=== PATIENT | male | born 1960 | race Caucasian/White ===

== ENCOUNTER 2016-08-03 21:13 | Emergency (ER) | payer BC ==
[~2016-08-03] VITALS: Ht 177.8 cm; Wt 76.5 kg
[2016-08-03 21:14] VITALS: BP 151/95; PULSE 73; RESP 14; TEMP 98; O2SAT 98
[2016-08-04] MEDS ORDERED: PANT40TA3 PO (05:15)
[2016-08-04] MEDS ORDERED: CEFU1TAB20 PO (05:15)
[2016-08-04] MEDS ORDERED: PRED10PA PO (05:15)
[2016-08-04 05:24] VITALS: BP 143/87; PULSE 53; RESP 16; O2SAT 100
[2016-08-04] MEDS ORDERED: SODIUM CHLOR 0.9% 1000 ML INJ 1,000 ML IV ONE (05:45)
[2016-08-04] MEDS ORDERED: RESP: ALBUTEROL 2.5 MG/IPRATROPIUM 0.5 MG NEB (SCH) NEB ONE (05:45)
[2016-08-04] MEDS ORDERED: SODIUM CHLORIDE 0.9% FLUSH 5 ML FLUSH IVF PRN (05:45)
--- NOTE | 2016-08-04 05:46 | PD ---
HPI Chief Complaint: Cardiac Complaint Time Seen by Provider: 05:28 Travel History International Travel<30 days: No Contact w/Intl Traveler<30days: No Traveled to known affect area: No History of Present Illness HPI Patient is a 55-year-old male who presents to emergency room with complaints of increased congestion to his chest since June 30, 2016. Patient reports on June 30, 2016, he smoked marijuana. Patient reports after he smokes marijuana he has had this increased congestion to his chest. Patient reports that he feels as if there is "something my chest that needs to come out, but can 't come out." Reports that he has been trying to cough up this sputum that is "stuck in my chest," but has not been able to. Patient denies chest pain or shortness of breath, reports just is "congestion in my chest." Patient did see a quality assurance supervisor final Dr. Tristan Mata on 07/25/16, patient was sent home with a prescription for CMP, CBC, TSH, EKG, CTA Chest and nuclear stress test. Patient reports that he has these studies scheduled for August 13, 2016. Patient reports that the symptoms have been getting worse, reports that he is not getting better and became concerned. Patient reports that he is here for a workup as well as CAT scan of his chest. Patient adamantly denies chest pain, reports "I don't know why I need to get a nuclear stress test." Patient with no recent travels or trips. Patient with no other complaints. Patient with no fevers or chills. PFSH Past Medical History Diminished Hearing: No Medical other: Yes (HX OF SUBDURAL HEMATOMA) Past Surgical History Neurologic Surgery: Yes (CRANIOTOMY) Family History Family History: Negative Social History Alcohol Use: No Tobacco Use: No Substance Use: No Allergies-Medications (Allergen,Severity, Reaction): Coded Allergies: No Known Allergies (Unverified , 08/04/16) Reported Meds & Prescriptions Reported Meds & Active Scripts Active Reported Cefuroxime (Cefuroxime Axetil) 500 Mg Tab 500 Mg PO BID Prednisone (21) 10 mg tab Dose Pack (Prednisone) 10 Mg Pack 10 Mg PO DIRECTED Pantoprazole (Pantoprazole Sodium) 40 Mg Tab 40 Mg PO DAILY Review of Systems General / Constitutional: No: Fever Eyes: No: Visual changes HENT: No: Headaches Cardiovascular: No: Chest Pain or Discomfort Respiratory: Positive: Shortness of Breath Gastrointestinal: No: Abdominal Pain Genitourinary: No: Dysuria Musculoskeletal: No: Pain Skin: No Rash Neurologic: No: Weakness Psychiatric: No: Depression Endocrine: No: Polydipsia Hematologic/Lymphatic: No: Easy Bruising Physical Exam Narrative GENERAL: No acute distress, nontoxic SKIN: Warm and dry. HEAD: Atraumatic. Normocephalic. EYES: Pupils equal and round. No scleral icterus. No injection or drainage. ENT: No nasal bleeding or discharge. Mucous membranes pink and moist. NECK: Trachea midline. No JVD. CARDIOVASCULAR: Regular rate and rhythm. No murmur appreciated. RESPIRATORY: No accessory muscle use. Clear to auscultation. Breath sounds equal bilaterally. GASTROINTESTINAL: Abdomen soft, non-tender, nondistended. Hepatic and splenic margins not palpable. MUSCULOSKELETAL: No obvious deformities. No clubbing. No cyanosis. No edema. NEUROLOGICAL: Awake and alert. No obvious cranial nerve deficits. Motor grossly within normal limits. Normal speech. PSYCHIATRIC: Appropriate mood and affect; insight and judgment normal. Data Data Last Documented VS Vital Signs Date Time Temp Pulse Resp B/P Pulse Ox O2 Delivery O2 Flow Rate FiO2 08/04/16 06:44 62 18 136/84 99 Room Air 08/03/16 21:14 98.0 Orders Electrocardiogram (08/03/16 ) Ckmb (Isoenzyme) Profile (08/04/16 05:34) Complete Blood Count With Diff (08/04/16 05:34) Comprehensive Metabolic Panel (08/04/16 05:34) Magnesium (Mg) (08/04/16 05:34) Prothrombin Time / Inr (Pt) (08/04/16 05:34) Act Partial Throm Time (Ptt) (08/04/16 05:34) Troponin I (08/04/16 05:34) Chest, Single Ap (08/04/16 05:34) Iv Access Insert/Monitor (08/04/16 05:34) Oximetry (08/04/16 05:34) Sodium Chloride 0.9% Flush (Ns Flush) (08/04/16 05:45) Ct Pulmonary Angiogram (08/04/16 05:34) Sodium Chlor 0.9% 1000 Ml Inj (Ns 1000 M (08/04/16 05:45) Albuterol-Ipratropium Neb (Duoneb Neb) (08/04/16 05:45) Thyroid Stimulating Hormone (08/04/16 05:42) CKMB (08/04/16 06:05) CKMB% (08/04/16 06:05) Iohexol 350 Inj (Omnipaque 350 Inj) (08/04/16 07:34) Labs Laboratory Tests Test 08/04/16 08/04/16 05:34 06:05 Thyroid Stimulating Hormone 2.130 uIU/ML 3rd Gen White Blood Count 7.2 TH/MM3 Red Blood Count 4.70 MIL/MM3 Hemoglobin 15.5 GM/DL Hematocrit 44.3 % Mean Corpuscular Volume 94.3 FL Mean Corpuscular Hemoglobin 33.0 PG Mean Corpuscular Hemoglobin 35.0 % Concent Red Cell Distribution Width 13.6 % Platelet Count 296 TH/MM3 Mean Platelet Volume 8.1 FL Neutrophils (%) (Auto) 69.5 % Lymphocytes (%) (Auto) 20.0 % Monocytes (%) (Auto) 9.0 % Eosinophils (%) (Auto) 0.7 % Basophils (%) (Auto) 0.8 % Neutrophils # (Auto) 5.0 TH/MM3 Lymphocytes # (Auto) 1.4 TH/MM3 Monocytes # (Auto) 0.7 TH/MM3 Eosinophils # (Auto) 0.1 TH/MM3 Basophils # (Auto) 0.1 TH/MM3 CBC Comment DIFF FINAL Differential Comment Prothrombin Time 10.1 SEC Prothromb Time International 0.9 RATIO Ratio Activated Partial 25.0 SEC Thromboplast Time Sodium Level 138 MEQ/L Potassium Level 3.9 MEQ/L Chloride Level 101 MEQ/L Carbon Dioxide Level 31.0 MEQ/L Anion Gap 6 MEQ/L Blood Urea Nitrogen 26 MG/DL Creatinine 0.88 MG/DL Estimat Glomerular Filtration 90 ML/MIN Rate Random Glucose 97 MG/DL Calcium Level 9.5 MG/DL Magnesium Level 2.5 MG/DL Total Bilirubin 0.4 MG/DL Aspartate Amino Transf 17 U/L (AST/SGOT) Alanine Aminotransferase 36 U/L (ALT/SGPT) Alkaline Phosphatase 80 U/L Total Creatine Kinase 156 U/L Creatine Kinase MB 4.1 NG/ML Troponin I LESS THAN 0.02 NG/ML Total Protein 8.5 GM/DL Albumin 4.7 GM/DL MDM Medical Decision Making Medical Screen Exam Complete: Yes Emergency Medical Condition: Yes Interpretation(s) Vital Signs Date Time Temp Pulse Resp B/P Pulse Ox O2 Delivery O2 Flow Rate FiO2 08/04/16 05:24 53 16 143/87 100 Room Air 08/04/16 05:16 16 98 Room Air 08/03/16 21:14 98.0 73 14 151/95 98 Room Air EKG at 22:44: Sinus bradycardia at 50 bpm, QT/QTc 380/377, no acute ST or T- wave changes Differential Diagnosis Hypothyroidism, pulmonary embolism, pneumonia, ACS, arrhythmia, electrolyte abnormalities, COPD exacerbation, pneumothorax Narrative Course Patient is a 55-year-old male who presents to emergency room with complaints of increased chest congestion since June 30, 2016. Patient reports that he has follow-up with a quality assurance supervisor final and has a bunch of studies and tests ordered and is scheduled for these tests on August 13, 2016. Patient reports that he is feeling worse and feels congested. Patient here for his labs and ct of chest. pt with nondisplaced fracture to posterior lateral 5th rib - pt reports that he now remembers falling on - reports "i was dancing and I fell" pt reports that this "congestion" started on June 30, prior to fall. Monie Asencio DO Aug 04, 2016 05:46
--- NOTE | 2016-08-04 06:15 | RADRPT ---
EXAM DATE/TIME: 08/04/2016 05:46 [facility] COMPARISON: No previous studies available for comparison. INDICATIONS : Pt short of breath with burning in chest x 1 month. MEDICAL HISTORY : Subdural hematoma SURGICAL HISTORY : Craniotomy. Laminectomy ENCOUNTER: Initial ACUITY: 1 day PAIN SCORE: 8/10 LOCATION: Bilateral chest FINDINGS: The lungs are symmetrically aerated. Nondisplaced fracture posterior lateral 5th rib. The lungs are symmetrically aerated and clear. No evidence of pneumothorax. Both hemidiaphragms are well delinea angus. The heart is normal size. CONCLUSION: The lungs are clear. Fracture posterior lateral left 5th rib. Yg Pérez MD on August 04, 2016 at 6:12 Board Certified Radiologist. This report was verified electronically.
[2016-08-04 06:25] LABS: BASOPHIL # 0.1 TH/MM3 (0-0.2); BASOPHIL % 0.8 % (0.0-2.0); EOSINOPHIL # 0.1 TH/MM3 (0-0.4); EOSINOPHIL % 0.7 % (0.0-4.0); HEMATOCRIT 44.3 % (39.0-51.0); HEMO FLAGS DIFF FINAL; LYMPHOCYTE # 1.4 TH/MM3 (1.0-4.8); MEAN CELL VOLUME 94.3 FL (80.0-100.0); NEUT % 69.5 % (16.0-70.0); PLATELET COUNT 296 TH/MM3 (150-450); RED CELL DISTRIBUTION WIDTH 13.6 % (11.6-17.2); WHITE BLOOD COUNT 7.2 TH/MM3 (4.0-11.0)
[2016-08-04 06:44] VITALS: BP 136/84; PULSE 62; RESP 18; O2SAT 99
[2016-08-04 06:44] LABS: INTERNATIONAL NORMALIZED RATIO 0.9 RATIO; PROTHROMBIN TIME - PATIENT 10.1 SEC (9.8-11.6)
[2016-08-04 07:03] LABS: ALT (GPT) 36 U/L (12-78); ANION GAP 6 MEQ/L (5-15); AST (GOT) 17 U/L (15-37); BLOOD UREA NITROGEN 26 MG/DL (7-18); CHLORIDE 101 MEQ/L (98-107); GLOMERULAR FILTRATION RATE 90 ML/MIN (>89); MAGNESIUM 2.5 MG/DL (1.5-2.5); POTASSIUM 3.9 MEQ/L (3.5-5.1); SODIUM (NA) 138 MEQ/L (136-145)
[2016-08-04 07:06] LABS: ALKALINE PHOSPHATASE 80 U/L (45-117); CREATINE KINASE 156 U/L (39-308); TOTAL BILIRUBIN ADULT 0.4 MG/DL (0.2-1.0)
[2016-08-04 07:19] LABS: CKMB 4.1 NG/ML (0.5-3.6)
[2016-08-04] MEDS ORDERED: IOHEXOL 350 MG/ML 10 ML VIAL (for RAD DIAG) IV ONE (07:34)
--- NOTE | 2016-08-04 08:00 | RADRPT ---
EXAM DATE/TIME: 08/04/2016 07:28 [facility] COMPARISON: No previous studies available for comparison. INDICATIONS : Evaluate for pulmonary angiogram. IV CONTRAST: 64 cc Omnipaque 350 (iohexol) IV RADIATION DOSE: 9.67 CTDIvol (mGy) MEDICAL HISTORY : Subdural hematoma. SURGICAL HISTORY : Craniotomy. ENCOUNTER: Initial ACUITY: 1 day PAIN SCALE: 5/10 LOCATION: Chest TECHNIQUE: Volumetric scanning of the chest was performed using a pulmonary embolism protocol MIP images were re constructed. Using automated exposure control and adjustment of the mA and/or kV according to patien t size, radiation dose was kept as low as reasonably achievable to obtain optimal diagnostic quality images. FINDINGS: There is no evidence for a central pulmonary emboli. There is no axillary adenopathy. There is no r adiographically significant mediastinal adenopathy. There is extensive collateralization around the right chest with what looks like a stenosis of the dias bclavian vein as it crosses underneath of the clavicle. Portion of liver and spleen identified are free of focal defects. CONCLUSION: 1. I see no evidence for central pulmonary emboli. 2. High grade venous obstruction as the subclavian vein crosses underneath the clavicle. Correlatio n is suggested to exclude arterial insufficiency. Chaim Martin MD FACR on August 04, 2016 at 7:48 Board Certified Radiologist. This report was verified electronically.
--- NOTE | 2016-08-04 08:09 | PD ---
Data Data Last Documented VS Vital Signs Date Time Temp Pulse Resp B/P Pulse Ox O2 Delivery O2 Flow Rate FiO2 08/04/16 06:44 62 18 136/84 99 Room Air 08/03/16 21:14 98.0 Orders Electrocardiogram (08/03/16 ) Ckmb (Isoenzyme) Profile (08/04/16 05:34) Complete Blood Count With Diff (08/04/16 05:34) Comprehensive Metabolic Panel (08/04/16 05:34) Magnesium (Mg) (08/04/16 05:34) Prothrombin Time / Inr (Pt) (08/04/16 05:34) Act Partial Throm Time (Ptt) (08/04/16 05:34) Troponin I (08/04/16 05:34) Chest, Single Ap (08/04/16 05:34) Iv Access Insert/Monitor (08/04/16 05:34) Oximetry (08/04/16 05:34) Sodium Chloride 0.9% Flush (Ns Flush) (08/04/16 05:45) Ct Pulmonary Angiogram (08/04/16 05:34) Sodium Chlor 0.9% 1000 Ml Inj (Ns 1000 M (08/04/16 05:45) Albuterol-Ipratropium Neb (Duoneb Neb) (08/04/16 05:45) Thyroid Stimulating Hormone (08/04/16 05:42) CKMB (08/04/16 06:05) CKMB% (08/04/16 06:05) Iohexol 350 Inj (Omnipaque 350 Inj) (08/04/16 07:34) Labs Laboratory Tests Test 08/04/16 08/04/16 05:34 06:05 Thyroid Stimulating Hormone 2.130 uIU/ML 3rd Gen White Blood Count 7.2 TH/MM3 Red Blood Count 4.70 MIL/MM3 Hemoglobin 15.5 GM/DL Hematocrit 44.3 % Mean Corpuscular Volume 94.3 FL Mean Corpuscular Hemoglobin 33.0 PG Mean Corpuscular Hemoglobin 35.0 % Concent Red Cell Distribution Width 13.6 % Platelet Count 296 TH/MM3 Mean Platelet Volume 8.1 FL Neutrophils (%) (Auto) 69.5 % Lymphocytes (%) (Auto) 20.0 % Monocytes (%) (Auto) 9.0 % Eosinophils (%) (Auto) 0.7 % Basophils (%) (Auto) 0.8 % Neutrophils # (Auto) 5.0 TH/MM3 Lymphocytes # (Auto) 1.4 TH/MM3 Monocytes # (Auto) 0.7 TH/MM3 Eosinophils # (Auto) 0.1 TH/MM3 Basophils # (Auto) 0.1 TH/MM3 CBC Comment DIFF FINAL Differential Comment Prothrombin Time 10.1 SEC Prothromb Time International 0.9 RATIO Ratio Activated Partial 25.0 SEC Thromboplast Time Sodium Level 138 MEQ/L Potassium Level 3.9 MEQ/L Chloride Level 101 MEQ/L Carbon Dioxide Level 31.0 MEQ/L Anion Gap 6 MEQ/L Blood Urea Nitrogen 26 MG/DL Creatinine 0.88 MG/DL Estimat Glomerular Filtration 90 ML/MIN Rate Random Glucose 97 MG/DL Calcium Level 9.5 MG/DL Magnesium Level 2.5 MG/DL Total Bilirubin 0.4 MG/DL Aspartate Amino Transf 17 U/L (AST/SGOT) Alanine Aminotransferase 36 U/L (ALT/SGPT) Alkaline Phosphatase 80 U/L Total Creatine Kinase 156 U/L Creatine Kinase MB 4.1 NG/ML Troponin I LESS THAN 0.02 NG/ML Total Protein 8.5 GM/DL Albumin 4.7 GM/DL MDM Supervised Visit with FER: No Narrative Course Patient signed out to me by previous provider. Please see associated no for further details. In short patient is a 55-year-old male who presents the emergency department with complaint of chest congestion dating back to June 30 when he smoked marijuana. Since, it feels as though he cannot expectorate, stating that he has something in his chest but cannot come out. He saw a spindle repairer, Dr. Rausch recently who sent him home with outpatient laboratory workup and CT pulmonary and ran. He ordered a nuclear stress test, but patient has denied any sort of chest pain, shortness of breath. Patient symptoms have persisted and he has not been able to arrange the above testing, prompting his ER visit. Per previous provider EKG and laboratory workup were negative. Patient had a chest x-ray that showed a posterior lateral rib fracture but patient denied any trauma. Stated that he has a history of alcoholism but has been sober for the last month dating back to his symptoms. Patient signed out to me pending CT pulmonary angiogram to rule out PE. Labs, chest x-ray were reviewed revealing nondisplaced posterior lateral left rib fracture. CT pulmonary and gram shows no evidence of central PE. Patient does have high-grade venous obstruction as the subclavian vein crosses underneath the clavicle. Correlation is suggested to exclude arterial insufficiency. On exam patient really only has mild posterior lateral tenderness palpation of the left rib cage. He denies any trauma and on CT does not have any hemo-or pneumothorax. On exam patient has bounding pulses in the bilateral upper extremities with good peripheral perfusion and no evidence of arterial or venous congestion. Patient was reassured and discharged home with outpatient pulmonology follow-up. Diagnosis Primary Impression: Left rib fracture Qualified Code: S22.32XA - Closed fracture of one rib of left side, initial encounter Additional Impressions: Chest congestion Chronic cough Stenosis of right subclavian vein Referrals: Geronimo Mata MD 3 days Additional Instruction: EKG, laboratory workup, imaging today notable only for left-sided rib fracture. Follow-up with pulmonology as scheduled. Disposition: 01 DISCHARGE HOME Condition: Stable Valerie Collado MD Aug 04, 2016 08:09
[2016-08-04 10:11] VITALS: BP 137/78
--- NOTE | 2016-08-04 14:46 | EKG ---
Date Performed: 08/03/2016 Time Performed: 22:44:31 PTAGE: 55 years EKG: SINUS BRADYCARDIA Poor R wave progression BORDERLINE ECG NO PREVIOUS TRACING DOCTOR: Sukh Hugo Interpretating Date/Time 08/04/2016 14:45:33
== END 2016-08-04 10:12 | disposition home or self-care (01) ==
LOC: NEPE 21:13
DX: S22.32XA Fracture of one rib, left side, initial encounter for closed fracture (principal); R09.89 Other specified symptoms and signs involving the circulatory and respiratory systems; R05 Cough; R06.02 Shortness of breath; X58.XXXA Exposure to other specified factors, initial encounter
CPT/HCPCS: 71010; 71275; 80053; 82550; 82552; 83735; 84443; 84484; 85025; 85610; 85730; 93005; 94664; 99284; J7030; Q9967